=== PATIENT | female | born 1950 | race Caucasian/White ===

== ENCOUNTER 2016-06-14 02:36 | Emergency (ER) | payer MEDICARE, OTHER ==
[~2016-06-14] VITALS: Ht 157.5 cm; Wt 81.0 kg
[~2016-06-14 02:36] MED LIST: AMLO1CAP5; ASPI-465; METO-53
[2016-06-14 02:40] VITALS: Ht 157.5 cm; Wt 81.0 kg
[2016-06-14] MEDS ORDERED: ONDANSETRON 4 MG INJ IV STA (03:00)
[2016-06-14] MEDS ORDERED: SOD CHLORIDE 0.9% 1,000 ML IV STA ×2 (03:00)
[2016-06-14] MEDS ORDERED: morphine 4 MG/ML VIAL IV STA (03:00)
--- NOTE | 2016-06-14 03:08 | ERD ---
ER Documentation Chief Complaint Date/Time DATE: 06/14/16 TIME: 03:04 Chief Complaint hypertension, hx-htn taking bp meds HPI Patient is a 65-year-old female who comes with multiple complaint. Her first complaint is that her blood pressure is elevated tonight. She states it was much higher at home but she took one of her beta-blockers before coming in tonight. Her second complaint is that she is dizzy. She cannot describe the dizziness other than to say it is not a spinning sensation. She cannot say what makes the dizziness better or worse. Her third complaint is that she had some palpitations tonight. The beta-geno she took help with the palpitations. Her fourth complaint is that she has had some abdominal pain which is been going on for several months. It is in the left upper quadrant and left flank region. It seems to come and go on its own. Nothing seems to make it better or worse. She has not had any weight loss or weight gain. She has not had any fever, nausea, vomiting, diarrhea, dysuria, or hematuria. She also has not had any focal weakness, or paresthesias, visual changes, headache, or head injury. She denies any fever, chest pain, shortness of breath, coughing , congestion, rhinorrhea, sore throat, or otalgia. In the remainder of the systems are negative. ROS All systems reviewed and are negative except as per history of present illness. Medications Home Meds Reported Medications Amlodipine-Benazepril (Lotrel) 1 Cap Capsule 03/10/09 Aspirin (Adult Low Dose Aspirin) 81 Mg Tablet. 03/10/09 Metoprolol (Lopressor) 50 Mg Tablet 03/10/09 Allergies Allergies: Coded Allergies: No Known Allergy (Unverified , 04/11/13) PMhx/Soc History of Surgery: No Hx Neurological Disorder: No Hx Respiratory Disorders: No Hx Cardiac Disorders: Yes (HTN, ) Hx Miscellaneous Medical Probl: Yes (ARTHRITIS) Hx Alcohol Use: No Hx Substance Use: No Hx Tobacco Use: No Smoking Status: Never smoker Physical Exam Vitals Vital Signs Date Time Temp Pulse Resp B/P Pulse Ox O2 Delivery O2 Flow Rate FiO2 06/14/16 04:16 82 16 165/94 98 Room Air 06/14/16 03:30 78 160/85 81 169/91 85 184/99 06/14/16 02:55 77 18 178/97 98 Room Air 06/14/16 02:40 97.8 80 20 199/93 98 Physical Exam Const: [] Well-developed well-nourished female lying on the bed in no acute distress Head: Atraumatic normocephalic Eyes: Normal Conjunctiva, pupils equally round and reactive to light, extraocular motions are intact ENT: Normal External Ears, Nose and Mouth., TMs are clear bilaterally Neck: Full range of motion..~ No meningismus. Resp: Clear to auscultation bilaterally, no tachypnea, retractions, or nasal flaring noted Cardio: Regular rate and rhythm, no murmurs Abd: Soft, non tender, non distended. Normal bowel sounds, no masses, rebound , or guarding Skin: No petechiae or rashes Back: No midline or flank tenderness Ext: No cyanosis, or edema Neur: Awake and alert, oriented 3, GCS of 15, cranial nerves II through XII are intact, no nystagmus, finger to nose is intact bilaterally, nonfocal Psych: Normal Mood and Affect Result Diagram: 06/14/16 0320 06/14/16 0320 Results 24 hrs Laboratory Tests Test 06/14/16 03:20 06/14/16 04:00 White Blood Count 7.510^3/ul Red Blood Count 4.4410^6/ul Hemoglobin 13.1g/dl Hematocrit 38.9% Mean Corpuscular Volume 87.6fl Mean Corpuscular Hemoglobin 29.5pg Mean Corpuscular Hemoglobin Concent 33.7g/dl Red Cell Distribution Width 12.9% Platelet Count 95028^3/UL Mean Platelet Volume 10.0fl Neutrophils % 57.8% Lymphocytes % 33.3% Monocytes % 7.3% Eosinophils % 0.9% Basophils % 0.4% Nucleated Red Blood Cells % 0.0/100WBC Neutrophils # 4.310^3/ul Lymphocytes # 2.510^3/ul Monocytes # 0.610^3/ul Eosinophils # 0.110^3/ul Basophils # 0.010^3/ul Nucleated Red Blood Cells # 0.010^3/ul Prothrombin Time 12.1Sec Prothrombin Time Ratio 0.9 INR International Normalized Ratio 0.90 Activated Partial Thromboplast Time 28.9Sec Sodium Level 142mmol/L Potassium Level 4.4mmol/L Chloride Level 106mmol/L Carbon Dioxide Level 27mmol/L Anion Gap 13 Blood Urea Nitrogen 16mg/dl Creatinine 0.60mg/dl Glucose Level 152mg/dl Calcium Level 9.0mg/dl Total Bilirubin 0.2mg/dl Direct Bilirubin 0.00mg/dl Indirect Bilirubin 0.2mg/dl Aspartate Amino Transf (AST/SGOT) 22IU/L Alanine Aminotransferase (ALT/SGPT) 46IU/L Alkaline Phosphatase 71IU/L Troponin I < 0.012ng/ml Total Protein 7.1g/dl Albumin 4.1g/dl Globulin 3.00g/dl Albumin/Globulin Ratio 1.36 Urine Color LT. YELLOW Urine Clarity CLEAR Urine pH 6.0 Urine Specific [place] <=1.005 Urine Ketones NEGATIVE Urine Nitrite NEGATIVE Urine Bilirubin NEGATIVE Urine Urobilinogen 0.2 E.U./dL Urine Leukocyte Esterase TRACE Urine Microscopic RBC 0-2/HPF Urine Microscopic WBC 2-5/HPF Urine Squamous Epithelial Cells FEW Urine Bacteria FEW Urine Hemoglobin NEGATIVE Urine Glucose NEGATIVE% Urine Total Protein NEGATIVE Current Medications Medications (Trade) Dose Ordered Sig/Calvin Route PRN Reason Start Time Stop Time Status Last Admin Dose Admin Sodium Chloride 1,000 ml @ 1,000 mls/hr Q1H STAT IV 06/14/16 03:00 06/14/16 03:59 DC 06/14/16 03:26 Sodium Chloride (NS) 1,000 ml @ 1,000 mls/hr Q1H STAT IV 06/14/16 03:00 06/14/16 03:04 DC Morphine Sulfate (morphine) 4 mg ONCE STAT IV 06/14/16 03:00 06/14/16 03:03 DC Ondansetron HCl (Zofran Inj) 4 mg ONCE STAT IV 06/14/16 03:00 06/14/16 03:04 DC Hydralazine HCl (Apresoline) 10 mg ONCE ONCE IV 06/14/16 03:30 06/14/16 03:31 DC 06/14/16 03:26 Hydralazine HCl (Apresoline) 10 mg ONCE ONCE IV 06/14/16 04:30 06/14/16 04:33 DC 06/14/16 04:41 Procedures/MDM Differential includes but is not limited to dizziness, hypertension, palpitations, nonspecific abdominal pain, vertigo, TIA, CVA, angina, diverticulitis, colitis, pyelonephritis, urinary tract infection EKG: Rate/Rhythm: Normal Sinus Rhythm at 75 bpm without any evidence of acute ischemia, arrhythmia, or ectopy noted, no old EKG available for comparison QRS, ST, T-waves: No changes consistent w/ acute ischemia Impression: No evidence of ischemia or arrhythmia Chest x-ray did not reveal any acute cardiopulmonary process CT the head does not reveal any acute intracranial abnormality Urinalysis is slightly positive for a urinary tract infection CT of the abdomen and pelvis does not reveal any acute intra-abdominal findings per the radiologist 0530: Patient's white cells are normal. Her conference metabolic panel is unremarkable. Her EKG is unremarkable. CT the head does not reveal any acute abnormalities. She does not tilt on orthostatics. Her troponin is negative. It appears she is stable for discharge home and further treatment as an outpatient. Departure Diagnosis: Primary Impression: Hypertension Hypertension type: essential hypertension Qualified Code: I10 - Essential hypertension Additional Impressions: Urinary tract infection Urinary tract infection type: acute cystitis Hematuria presence: without hematuria Qualified Code: N30.00 - Acute cystitis without hematuria Dizziness of unknown cause Palpitations Abdominal pain Abdominal location: left upper quadrant Qualified Code: R10.12 - Left upper quadrant pain Left flank pain Condition: Good Patient Instructions: Abdominal Pain, Dizziness, Unk Cause, Flank Pain, Uncertain Cause, Hypertension, Established, Out Of Control, Palpitations, Understanding Urinary Tract Infections (UTIs) Additional Instructions: Please take your medications as prescribed and schedule a follow-up appointment with your primary care physician for further evaluation and treatment of your complaints. He will also need a recheck of your blood pressure to see if her medications need to be adjusted for better control of her blood pressure. Return to the emergency department for any new or worsening symptoms. BRIDGER CANO Jun 14, 2016 03:08
[2016-06-14] MEDS ORDERED: hydrALAzine 20 MG INJ IV ONE ×2 (03:30→04:30)
[2016-06-14 03:46] LABS: ADD SCAN DIFF NO
[2016-06-14 03:48] LABS: BASOPHILS % 0.4 % (0.0-2.0); EOSINOPHILS # 0.1 10^3/ul (0.0-0.5); EOSINOPHILS % 0.9 % (0.0-7.0); HEMATOCRIT 38.9 % (37.0-47.0); HEMOGLOBIN 13.1 g/dl (12.0-16.0); LYMPHOCYTES # 2.5 10^3/ul (0.8-2.9); LYMPHOCYTES % 33.3 % (15.0-51.0); MEAN CORPUSCULAR HEMOGLOBIN 29.5 pg (29.0-33.0); MEAN CORPUSCULAR HGB CONC 33.7 g/dl (32.0-37.0); MEAN CORPUSCULAR VOLUME 87.6 fl (82.0-101.0); MONOCYTE # 0.6 10^3/ul (0.3-0.9); MONOCYTES % 7.3 % (0.0-11.0); NEUTROPHIL # 4.3 10^3/ul (1.6-7.5); NEUTROPHILS % 57.8 % (39.0-77.0); PLATELET COUNT 185 10^3/UL (140-415); RED BLOOD COUNT 4.44 10^6/ul (4.20-5.40); RED CELL DISTRIBUTION WIDTH 12.9 % (11.5-14.5); WHITE BLOOD COUNT 7.5 10^3/ul (4.8-10.8)
[2016-06-14 04:05] LABS: INR 0.9; PROTIME 12.1 Sec (12.2-14.2); PT RATIO 0.9
[2016-06-14 04:06] LABS: PARTIAL THROMBOPLASTIN TIME 28.9 Sec (25.0-35.0)
[2016-06-14 04:07] LABS: ALBUMIN 4.1 g/dl (3.3-4.9); CHLORIDE 106 mmol/L (97-110); SODIUM 142 mmol/L (135-144)
[2016-06-14 04:08] LABS: POTASSIUM 4.4 mmol/L (3.5-5.1)
[2016-06-14 04:10] LABS: ALANINE AMINOTRANSFERASE 46 IU/L (13-69); ALBUMIN/GLOBULIN RATIO 1.36; ALKALINE PHOSPHATASE 71 IU/L (42-121); ANION GAP 13 (8-16); ASPARTATE AMINO TRANSFERASE 22 IU/L (15-46); BILIRUBIN,INDIRECT 0.2 mg/dl (0-1.1); BILIRUBIN,TOTAL 0.2 mg/dl (0.2-1.3); BLOOD UREA NITROGEN 16 mg/dl (7-20); CARBON DIOXIDE 27 mmol/L (21-31); GLUCOSE 152 mg/dl (70-220); TOTAL PROTEIN 7.1 g/dl (6.1-8.1)
--- NOTE | 2016-06-14 04:17 | RADRPT ---
PROCEDURE: CT BRAIN WITHOUT CONTRAST CLINICAL INDICATION: 65-year-old female with dizziness. TECHNIQUE: The study was performed utilizing [employer] VCT 64-slice CT scanner. Direct axial sections were obtained from the foramen magnum to the vertex without the use of intravenous contrast material. Sagittal and coronal reformations were obtained. One or more of the following dose reduc tion techniques were utilized: automated exposure control, adjustment of the mA and/or kV according to patient's size or use of iterative reconstruction technique. The images were viewed on a PACS w orkstation. CTD/vol = 44.5 mGy; Total Exam DLP = 720.2 mGy-cm. COMPARISON: None. FINDINGS: There is mild prominence of the sulci and cisternal spaces consistent with diffuse volume loss. Oth erwise, the ventricles have a normal shape and position. There is no evidence for mass effect or mid line shift. There is mild left frontal deep white matter decreased density which was present previo usly and is without significant interval change. There is no evidence for acute intra or extra-axia l blood. The bony calvarium is intact. Mild hyperostosis frontalis interna is noted. The partially visualized paranasal sinuses and mastoid air cells are without significant abnormal soft tissue. IMPRESSION: 1. Mild diffuse volume loss. 2. Left frontal deep white matter decreased density presumably microangiopathic ischemic changes an d without significant interval change. .Ever Johnson MD, MD Date Time Electronically viewed and signed by .Ever Johnson MD, MD on 06/14/2016 04:17 .M/
--- NOTE | 2016-06-14 04:20 | RADRPT ---
PROCEDURE: CHEST - 1 VIEW CLINICAL INDICATION: 65-year-old female with chest pain. TECHNIQUE: A single frontal AP upright portable view of the chest was performed. The images were reviewed on a PACS workstation. COMPARISON: Chest x-ray April 11, 2013; CT abdomen/pelvis June 14, 2016. FINDINGS: There is a shallow inspiration accentuating the heart size. Accounting for this, the cardiomediasti nal silhouette is within normal limits. There is bilateral lower lung zone subsegmental atelectasis . A superimposed infiltrate cannot be excluded. There is no evidence for congestive heart failure . There is no evidence for pneumothorax. There is an old fracture deformity visualized involving the posterior seventh rib. IMPRESSION: 1. Shallow inspiration. 2. Bilateral lower lung zone subsegmental atelectasis. 3. Old right posterior seventh rib fracture deformity. .Ever Johnson MD, Date Time Electronically viewed and signed by .Ever Johnson MD, on 06/14/2016 04:19 .M/
[2016-06-14 04:23] LABS: TROPONIN-I < 0.012 ng/ml (0.00-0.12)
--- NOTE | 2016-06-14 04:24 | RADRPT ---
PROCEDURE: CT ABDOMEN/PELVIS WITHOUT CONTRAST CLINICAL INDICATION: 65-year-old female with abdominal pain. TECHNIQUE: The study was performed utilizing a GE [employer]ed VCT 64-slice CT scanner. Direct axia l sections were obtained through the abdomen and pelvis without the use of intravenous contrast mate rial. Sagittal and coronal reformations were obtained. One or more of the following dose reduction t echniques were utilized: automated exposure control, adjustment of the mA and/or kV according to pat ient's size or use of iterative reconstruction technique. The images were reviewed on a PACS workst atINCHRON. CTD/vol = 21.6 mGy; Total Exam DLP = 1264.6 mGy-cm. COMPARISON: None. FINDINGS: There is mild bibasilar subsegmental atelectasis. There is no evidence for significant pleural effu frank. The liver has a normal size and contour without focal areas of abnormal density. No intrahepa tic nor extrahepatic biliary ductal dilatation is seen. The gallbladder demonstrates no wall thicken ing nor pericholecystic fluid. No biliary stones are evident. The pancreas is without areas of abnor mal attenuation. The spleen is identified and has a normal size without abnormal density. The adren al glands are unremarkable. The kidneys are without abnormal density. No hydroureteronephrosis nor n ephroureterolithiasis is evident. The urinary bladder contains urine. There is mild retained stool w ithin the ascending and transverse colon without obstruction. The appendix is visualized and is wit hout abnormal thickening or surrounding inflammatory reaction. The uterus is unremarkable. There is no significant free fluid. The aortoiliac vessels are without aneurysmal dilatation. Degenerative changes are seen within the spine. IMPRESSION: 1. Mild bibasilar subsegmental atelectasis. 2. No CT evidence for obstructive uropathy or renal calculi. 3. Retained stool without obstruction. 4. No CT evidence for appendicitis. 5. Degenerative changes within the spine. .Ever Johnson MD, Date Time Electronically viewed and signed by .Ever Johnson MD, on 06/14/2016 04:23 .M/
[2016-06-14 04:40] LABS: ADD UMIC YES; URINE BILIRUBIN (Dip) NEGATIVE (NEGATIVE); URINE BLOOD (Dip) NEGATIVE (NEGATIVE); URINE COLOR LT. YELLOW (YELLOW); URINE GLUCOSE (Dip) NEGATIVE (NEGATIVE); URINE KETONES (Dip) NEGATIVE (NEGATIVE); URINE LEUKOCYTE ESTERASE (Dip) TRACE (NEGATIVE); URINE NITRITE (Dip) NEGATIVE (NEGATIVE); URINE TOTAL PROTEIN (Dip) NEGATIVE (NEGATIVE); URINE UROBILINOGEN (Dip) 0.2 E.U./dL (0.1-1.0)
[2016-06-14 04:48] LABS: BACTERIA,URINE FEW; SQUAMOUS EPITHELIAL CELL,UR FEW; URINE RBCS 0-2 /HPF (0)
[2016-06-14] MEDS ORDERED: CEFTRIAXONE 1 GM/50 ML (PMX) 50 ML IVPB ONE (05:30)
[2016-06-14] MEDS ORDERED: CIPR500T4 PO (05:33)
[2016-06-14] MEDS ORDERED: HYDR-3671 PO (05:34)
[2016-06-14] MEDS ORDERED: MECL12.574 PO (05:34)
[2016-06-14] MEDS ORDERED: ONDA4TAB8 PO (05:35)
[2016-06-14] MEDS ORDERED: ONDANSETRON (ODT) 4 MG TAB ODT ONE ×2 (06:12→06:24)
[2016-06-14 06:16] VITALS: BP 151/88; PULSE 95; RESP 21; TEMP 98.7
== END 2016-06-14 06:24 | disposition home or self-care (01) ==
LOC: E/R 02:36
DX: I10 Essential (primary) hypertension (principal); N30.00 Acute cystitis without hematuria; R00.2 Palpitations; R10.12 Left upper quadrant pain; Z79.82 Long term (current) use of aspirin
CPT/HCPCS: 36415; 70450; 71010; 74176; 80053; 81001; 81003; 84484; 85025; 85610; 85730; 87086; 93005; 96374; 96375; 96376; 99285; J0360; J0696; J7030; J2405

== ENCOUNTER 2016-11-14 00:03 | Emergency (ER) | payer MEDICARE, OTHER ==
[~2016-11-14] VITALS: Ht 157.5 cm; Wt 79.5 kg
[~2016-11-14 00:03] MED LIST changes: +CIPR500T4 PO; +HYDR-3671 PO; +MECL12.574 PO; +ONDA4TAB8 PO
[2016-11-14 00:24] VITALS: Ht 157.5 cm; Wt 79.5 kg
[2016-11-14] MEDS ORDERED: hydrALAzine 20 MG INJ IV ONE (04:30)
--- NOTE | 2016-11-14 05:10 | RADRPT ---
PROCEDURE: CHEST - 1 VIEW CLINICAL INDICATION: 66-year-old female with chest pain and headaches. TECHNIQUE: A single frontal AP upright portable view of the chest was performed. The images were reviewed on a PACS workstation. COMPARISON: Chest x-ray June 14, 2016. FINDINGS: The cardiomediastinal silhouette has a normal appearance. There is mild elevation right hemidiaphrag m. There is a shallow inspiration. There is mild bibasilar subsegmental atelectasis There is no e vidence for an infiltrate. There is no evidence for congestive heart failure. There is no evidence for pneumothorax. There is an old posterior right seventh rib fracture deformity. IMPRESSION: 1. Shallow inspiration with elevated right hemidiaphragm. 2. Mild bibasilar subsegmental atelectasis. 3. Old posterior right seventh rib fracture deformity. .Ever Johnson MD, Date Time Electronically viewed and signed by .Ever Johnson MD, MD on 11/14/2016 05:10 .M/
[2016-11-14] MEDS ORDERED: TEMA15CA6 PO (05:47)
[2016-11-14] MEDS ORDERED: VENL75CA89 PO (05:47)
[2016-11-14] MEDS ORDERED: MELO-109 PO (05:47)
[2016-11-14] MEDS ORDERED: CLON0.5T4 PO (05:47)
[2016-11-14] MEDS ORDERED: ROSU40TA35 PO (05:47)
[2016-11-14] MEDS ORDERED: PANT40TA4 PO (05:47)
[2016-11-14 06:06] VITALS: BP 157/87; PULSE 81; RESP 20; TEMP 97.5
--- NOTE | 2016-11-14 06:12 | RADRPT ---
PROCEDURE: CT BRAIN WITHOUT CONTRAST CLINICAL INDICATION: 66-year-old female with headaches. TECHNIQUE: The study was performed utilizing [employer]o VCT 64-slice CT scanner. Direct axial sections were obtained from the foramen magnum to the vertex without the use of intravenous contrast material. Sagittal and coronal reformations were obtained. One or more the following dose reduction techniques were utilized: automated exposure control, adjustment of the mA and/or kV according to p atient's size or use of iterative reconstruction technique. The images were viewed on a PACS worksta tion. CTD/vol = 45.0 mGy; Total Exam DLP = 720.2 mGy-cm. COMPARISON: CT brain June 14, 2016. FINDINGS: There is mild prominence of the sulci and cisternal spaces consistent with diffuse volume loss. Oth erwise, the ventricles are normal size, shape and position. There is no evidence for mass effect or midline shift. There is again noted a small focal area of decreased density within the left fronta l periventricular deep white matter without significant interval change. There is no evidence for a cute intra or extra-axial blood. The bony calvarium is intact. Mild hyperostosis frontalis interna i s noted. The partially visualized paranasal sinuses and mastoid air cells are without significant ab normal soft tissue. IMPRESSION: 1. There has been no marked interval change compared to the patient's prior CT scan from June 14, 2016. 2. Mild diffuse volume loss. 3. Persistent small focal left frontal focus of decreased density without interval change. Etiologi es include microangiopathic ischemic changes, vasculitis, migraine, sequela of prior trauma. 4. Mild hyperostosis frontalis interna. .Ever Johnson MD, Date Time Electronically viewed and signed by .Ever Johnson MD, on 11/14/2016 06:12 .M/
[2016-11-14 06:13] LABS: BASOPHILS % 0.3 % (0.0-2.0); EOSINOPHILS # 0.1 10^3/ul (0.0-0.5); HEMATOCRIT 43.5 % (37.0-47.0); HEMOGLOBIN 14.9 g/dl (12.0-16.0); LYMPHOCYTES # 2.8 10^3/ul (0.8-2.9); LYMPHOCYTES % 38.3 % (15.0-51.0); MEAN CORPUSCULAR HEMOGLOBIN 29.2 pg (29.0-33.0); MEAN CORPUSCULAR HGB CONC 34.3 g/dl (32.0-37.0); MEAN CORPUSCULAR VOLUME 85.3 fl (82.0-101.0); MEAN PLATELET VOLUME 10.2 fl (7.4-10.4); MONOCYTE # 0.5 10^3/ul (0.3-0.9); MONOCYTES % 7.1 % (0.0-11.0); NEUTROPHILS % 53.2 % (39.0-77.0); PLATELET COUNT 193 10^3/UL (140-415); RED CELL DISTRIBUTION WIDTH 12.6 % (11.5-14.5); WHITE BLOOD COUNT 7.3 10^3/ul (4.8-10.8)
[2016-11-14 06:34] LABS: INR 0.87; PARTIAL THROMBOPLASTIN TIME 27.9 Sec (25.0-35.0); PROTIME 11.8 Sec (12.2-14.2); PT RATIO 0.9
[2016-11-14] MEDS ORDERED: ACETAMINOPHEN 500 MG TAB PO STA (06:36)
--- NOTE | 2016-11-14 06:46 | ERA ---
ER Documentation Chief Complaint Date/Time DATE: 11/14/16 TIME: 06:43 Chief Complaint headache and dizziness x a couple of hours. feels that her B/P is high HPI This is a 66-year-old female who presents to the emergency room complaining of dizziness and headache. She describes several hours prior to arrival she noted her blood pressure was elevated. She thinks that she missed 1-2 doses of her blood pressure medications. She started to have a mild headache that was diffuse and gradual in onset, moderate. This was associated with dizziness. No chest pain or pressure. Symptoms are improving with blood pressure improvement. Patient denies any fevers chills, falls, numbness or tingling or difficulty speaking. ROS All systems reviewed and are negative except as per history of present illness. Medications Home Meds Active Scripts Meclizine Hcl* (Antivert*) 12.5 Mg Tab, 25 MG PO Q6H Y for DIZZINESS, #30 TAB 0 Refills Prov:BRIDGER CANO 06/14/16 Hydralazine Hcl* (Hydralazine Hcl*) 25 Mg Tab, 25 MG PO Q8, #90 TAB 0 Refills Prov:BRIDGER CANO 06/14/16 Reported Medications Rosuvastatin Calcium* (Crestor*) 40 Mg Tablet, 40 MG PO QHS, #30 TAB 11/14/16 Venlafaxine Hcl* (Venlafaxine Hcl ER*) 75 Mg Cap.er.24h, 75 MG PO DAILY, CAP 11/14/16 Meloxicam* (Meloxicam*) 7.5 Mg Tablet, 7.5 MG PO DAILY, #30 TAB 11/14/16 Clonazepam* (Clonazepam*) 0.5 Mg Tablet, 0.5 MG PO BID, TAB 11/14/16 Temazepam* (Restoril*) 15 Mg Capsule, 15 MG PO HS Y for INSOMNIA, CAP 11/14/16 Pantoprazole* (Pantoprazole*) 40 Mg Tablet.dr, 40 MG PO DAILY, TAB 11/14/16 Aspirin (Adult Low Dose Aspirin) 81 Mg Tablet. 03/10/09 Metoprolol (Lopressor) 50 Mg Tablet 03/10/09 Discontinued Reported Medications Amlodipine-Benazepril (Lotrel) 1 Cap Capsule 03/10/09 Discontinued Scripts Ondansetron Hcl* (Zofran*) 4 Mg Tablet, 4 MG PO Q8H Y for NAUSEA AND/OR VOMITING , #30 TAB 0 Refills Prov:BRIDGER CANO 06/14/16 Ciprofloxacin Hcl* (Ciprofloxacin Hcl*) 500 Mg Tablet, 500 MG PO BID for 5 Days , TAB 0 Refills Prov:BRIDGER CANO 06/14/16 Allergies Allergies: Coded Allergies: No Known Allergy (Unverified , 11/14/16) PMhx/Soc History of Surgery: No Hx Neurological Disorder: No Hx Respiratory Disorders: No Hx Cardiac Disorders: Yes (HTN, ) Hx Miscellaneous Medical Probl: Yes (ARTHRITIS) Hx Alcohol Use: No Hx Substance Use: No Hx Tobacco Use: No Smoking Status: Never smoker FmHx Family History: No diabetes Physical Exam Vitals Vital Signs Date Time Temp Pulse Resp B/P Pulse Ox O2 Delivery O2 Flow Rate FiO2 11/14/16 06:06 97.5 81 20 157/87 98 Room Air 11/14/16 00:24 97.5 84 20 197/100 98 Physical Exam General: Well developed, well nourished, no acute distress Head: Normocephalic, atraumatic. Eyes: Pupils equally reactive, EOM intact ENT: Moist mucous membranes Neck: Supple, no lymphadenopathy Respiratory: Lungs clear bilaterally, no distress Cardiovascular: RRR, no murmurs, rubs, or gallops Abdominal: Soft, non-tender, non-distended, no peritoneal signs : Deferred MSK: No edema, no unilateral swelling, 5/5 strength Neurologic: Alert and oriented, moving all extremities, normal speech, no focal weakness, no cerebellar signs Skin: No rash Psych: Normal mood Result Diagram: 11/14/1615 11/14/1615 Results 24 hrs Laboratory Tests Test 11/14/16 05:15 White Blood Count 7.310^3/ul Red Blood Count 5.1010^6/ul Hemoglobin 14.9g/dl Hematocrit 43.5% Mean Corpuscular Volume 85.3fl Mean Corpuscular Hemoglobin 29.2pg Mean Corpuscular Hemoglobin Concent 34.3g/dl Red Cell Distribution Width 12.6% Platelet Count 08579^3/UL Mean Platelet Volume 10.2fl Neutrophils % 53.2% Lymphocytes % 38.3% Monocytes % 7.1% Eosinophils % 1.0% Basophils % 0.3% Nucleated Red Blood Cells % 0.0/100WBC Neutrophils # (Manual) 3.910^3/ul Lymphocytes # 2.810^3/ul Monocytes # 0.510^3/ul Eosinophils # 0.110^3/ul Basophils # 0.010^3/ul Nucleated Red Blood Cells # 0.010^3/ul Prothrombin Time 11.8Sec Prothrombin Time Ratio 0.9 INR International Normalized Ratio 0.87 Activated Partial Thromboplast Time 27.9Sec Sodium Level 146mmol/L Potassium Level 3.9mmol/L Chloride Level 103mmol/L Carbon Dioxide Level 25mmol/L Anion Gap 22 Blood Urea Nitrogen 13mg/dl Creatinine 0.56mg/dl Glucose Level 128mg/dl Calcium Level 9.9mg/dl Troponin I < 0.012ng/ml Current Medications Medications (Trade) Dose Ordered Sig/Calvin Route PRN Reason Start Time Stop Time Status Last Admin Dose Admin Hydralazine HCl (Apresoline) 20 mg ONCE ONCE IV 11/14/16 04:30 11/14/16 04:31 DC 11/14/16 05:16 Acetaminophen (Tylenol Tab) 1,000 mg ONCE STAT PO 11/14/16 06:36 11/14/16 06:37 DC 11/14/16 06:45 Procedures/MDM EKG, MONITORS, & DIAGNOSTIC IMAGING: EKG: I reviewed and interpreted a 12-lead EKG. Rhythm: Normal sinus rhythm Ectopy: None Intervals: No abnormalities ST segments: No elevations or depressions T waves: No contiguous inversions Chest x-ray: I reviewed and interpreted a 1 view of the chest Mediastinum: No enlargement Cardiac silhouette: No cardiomegaly Airspace: Clear lung payne bilaterally without evidence of pneumothorax Bones: No evidence of fracture CT brain IMPRESSION: 1. There has been no marked interval change compared to the patient's prior CT scan from June 14, 2016. 2. Mild diffuse volume loss. 3. Persistent small focal left frontal focus of decreased density without interval change. Etiologies include microangiopathic ischemic changes, vasculitis, migraine, sequela of prior trauma. 4. Mild hyperostosis frontalis interna. LAB INTERPRETATION: Negative troponin, no leukocytosis MEDICAL DECISION MAKING The patient presents to the emergency room with elevated blood pressure headache and mild dizziness. Her symptoms are very consistent with hypertensive urgency. No evidence of stroke or intracranial hemorrhage. The patient has no chest pain or shortness of breath. At this point, no signs or symptoms concerning for endorgan dysfunction. Given the patient's age, however I would feel the patient would benefit from laboratory testing and diagnostic imaging to rule out endorgan dysfunction. The patient was seen by the overnight physician prior to my arrival and given hydralazine, laboratory testing and diagnostic imaging was ordered. The patient is asymptomatic upon my evaluation. ER COURSE: The patient was given hydralazine with improvement of her high blood pressure. Her symptoms are dramatically improved. Her laboratory testing and diagnostic imaging showed no evidence of endorgan dysfunction. The patient's elevated blood pressure is likely secondary to noncompliance with medication regimen. The patient should follow-up with primary care physician. The patient's family member appear to think that the patient does forget her medications from time to time. I recommended that another family member take part in administering her help the patient administer her medications. The patient's blood pressure has improved. Tylenol improved her headache. Patient is now asymptomatic and safe for discharge. I kept the patient and/or family informed of laboratory and diagnostic imaging results throughout the emergency room course. DISPOSITION PLAN: We discussed follow up with the patient's primary care doctor within 24 to 48 hours as needed. We also discussed return to the emergency room for worsening symptoms or worsening condition. Outpatient referral: [None required] Departure Diagnosis: Primary Impression: Hypertensive urgency Condition: Stable BEATRICE MCKEON MD Nov 14, 2016 06:46
[2016-11-14 06:55] LABS: ANION GAP 22 (8-16); BLOOD UREA NITROGEN 13 mg/dl (7-20); CALCIUM 9.9 mg/dl (8.4-10.2); CARBON DIOXIDE 25 mmol/L (21-31); CHLORIDE 103 mmol/L (97-110); CREATININE 0.56 mg/dl (0.44-1.00); GLUCOSE 128 mg/dl (70-220); POTASSIUM 3.9 mmol/L (3.5-5.1); SODIUM 146 mmol/L (135-144)
[2016-11-14 07:09] LABS: TROPONIN-I < 0.012 ng/ml (0.00-0.12)
[2016-11-14 07:49] LABS: URINE BLOOD (Dip) POC Negative (NEGATIVE)
== END 2016-11-14 07:50 | disposition home or self-care (01) ==
LOC: E/R 00:03
DX: I16.0 Hypertensive urgency (principal); I10 Essential (primary) hypertension; R07.9 Chest pain, unspecified; Z79.82 Long term (current) use of aspirin
CPT/HCPCS: 36415; 70450; 71010; 80048; 81003; 84484; 85025; 85610; 85730; 93005; 96374; 99285; J0360

== ENCOUNTER 2017-11-09 04:25 | Emergency (ER) | END 2017-11-09 05:30 | disposition home or self-care (01) ==

== ENCOUNTER 2018-01-24 11:51 | Emergency (ER) | END 2018-01-24 16:30 | disposition home or self-care (01) ==

== ENCOUNTER 2018-05-22 08:10 | Emergency (ER) | payer MEDICARE, OTHER ==
[~2018-05-22] VITALS: Ht 167.6 cm; Wt 80.5 kg
[~2018-05-22 08:10] MED LIST changes: +ACET325T33 PO; -AMLO1CAP5; -CIPR500T4 PO; +CLON0.5T14 PO; +MELO7.5T38 PO; -ONDA4TAB8 PO; +PANT40TA4 PO; +ROSU40TA35 PO; +TEMA15CA6 PO; +VENL75CA89 PO
[2018-05-22 08:19] VITALS: Ht 167.6 cm; Wt 80.5 kg
--- NOTE | 2018-05-22 09:03 | ERD ---
ER Documentation Chief Complaint Chief Complaint Per Patient her BP is elevated (she took her meication this am) HPI 67-year-old woman brought in by family member for elevated blood pressure despite using medications. BP was checked at home twice and was elevated this morning and so she brought her here for evaluation. Patient is asymptomatic and denies headache or chest pain, no shortness of breath, no calf or leg swelling, no dizziness. ROS All systems reviewed and are negative except as per history of present illness. Medications Home Meds Active Scripts Acetaminophen* (Tylenol*) 325 Mg Tablet, 1 TAB PO Q6 PRN for PAIN, #20 TAB Prov:MIRIAN PETERSEN MD 01/24/18 Meclizine Hcl* (Antivert*) 12.5 Mg Tab, 25 MG PO Q6H PRN for DIZZINESS, #30 TAB 0 Refills Prov:BRIDGER CANO 06/14/16 Hydralazine Hcl* (Hydralazine Hcl*) 25 Mg Tab, 25 MG PO Q8, #90 TAB 0 Refills Prov:BRIDGER CANO 06/14/16 Reported Medications Rosuvastatin Calcium* (Crestor*) 40 Mg Tablet, 40 MG PO QHS, #30 TAB 11/14/16 Venlafaxine Hcl* (Venlafaxine Hcl ER*) 75 Mg Cap.er.24h, 75 MG PO DAILY, CAP 11/14/16 Meloxicam* (Meloxicam*) 7.5 Mg Tablet, 7.5 MG PO DAILY, #30 TAB 11/14/16 Clonazepam* (Clonazepam*) 0.5 Mg Tablet, 0.5 MG PO BID, TAB 11/14/16 Temazepam* (Restoril*) 15 Mg Capsule, 15 MG PO HS PRN for INSOMNIA, CAP 11/14/16 Pantoprazole* (Pantoprazole*) 40 Mg Tablet.dr, 40 MG PO DAILY, TAB 11/14/16 Aspirin (Adult Low Dose Aspirin) 81 Mg Tablet. 03/10/09 Metoprolol (Lopressor) 50 Mg Tablet 03/10/09 Allergies Allergies: Coded Allergies: No Known Allergy (Unverified , 11/14/16) PMhx/Soc hypertension, hyperlipidemia, GERD, and anxiety, History of Surgery: No Hx Neurological Disorder: No Hx Respiratory Disorders: No Hx Cardiac Disorders: Yes (Hypertension, hyperlipidemia) Hx Psychiatric Problems: Yes (Anxiety, depression) Hx Miscellaneous Medical Probl: Yes (ARTHRITIS, GERD, vertigo) Hx Alcohol Use: No Hx Substance Use: No Hx Tobacco Use: No Smoking Status: Never smoker Physical Exam Vitals Vital Signs Date Temp Pulse Resp B/P (MAP) Pulse Ox O2 O2 Flow FiO2 Time Delivery Rate 05/22/18 70 18 148/80 95 Room Air 10:12 (102) 05/22/18 82 18 156/80 98 Room Air 08:58 (105) 05/22/18 97.6 78 20 188/90 97 08:19 (122) Physical Exam Const: Appears anxious, afebrile Head: Atraumatic Eyes: Normal Conjunctiva ENT: Normal External Ears, Nose and Mouth. Neck: Full range of motion. No meningismus. Resp: Clear to auscultation bilaterally Cardio: Regular rate and rhythm, no murmurs Abd: Soft, non tender, non distended. Normal bowel sounds Skin: No petechiae or rashes Back: No midline or flank tenderness Ext: No cyanosis, or edema Neur: Awake and alert x3, no focal deficits or facial asymmetry, pupils equal round reactive to light, funduscopic exam deferred Psych: Anxious Result Diagram: 05/22/1819 05/22/18918 Results 24 hrs Laboratory Tests Test 05/22/18 09:19 White Blood Count 6.8 10^3/ul Red Blood Count 4.71 10^6/ul Hemoglobin 13.9 g/dl Hematocrit 40.9 % Mean Corpuscular Volume 86.8 fl Mean Corpuscular Hemoglobin 29.5 pg Mean Corpuscular Hemoglobin Concent 34.0 g/dl Red Cell Distribution Width 12.4 % Platelet Count 200 10^3/UL Mean Platelet Volume 10.6 fl Immature Granulocytes % 0.100 % Neutrophils % 64.4 % Lymphocytes % 26.7 % Monocytes % 7.7 % Eosinophils % 1.0 % Basophils % 0.1 % Nucleated Red Blood Cells % 0.0 /100WBC Immature Granulocytes # 0.010 10^3/ul Neutrophils # 4.3 10^3/ul Lymphocytes # 1.8 10^3/ul Monocytes # 0.5 10^3/ul Eosinophils # 0.1 10^3/ul Basophils # 0.0 10^3/ul Nucleated Red Blood Cells # 0.0 10^3/ul Urine Color STRAW Urine Clarity CLEAR Urine pH 7.0 Urine Specific [place] 1.004 Urine Ketones NEGATIVE mg/dL Urine Nitrite NEGATIVE mg/dL Urine Bilirubin NEGATIVE mg/dL Urine Urobilinogen NEGATIVE mg/dL Urine Leukocyte Esterase NEGATIVE Jb/ul Urine Hemoglobin NEGATIVE mg/dL Urine Glucose NEGATIVE mg/dL Urine Total Protein NEGATIVE mg/dl Sodium Level 140 mmol/L Potassium Level 4.3 mmol/L Chloride Level 104 mmol/L Carbon Dioxide Level 27 mmol/L Anion Gap 9 Blood Urea Nitrogen 11 mg/dl Creatinine 0.41 mg/dl Est Glomerular Filtrat Rate mL/min > 60 mL/min Glucose Level 132 mg/dl Calcium Level 9.9 mg/dl Total Bilirubin 0.3 mg/dl Direct Bilirubin 0.00 mg/dl Indirect Bilirubin 0.3 mg/dl Aspartate Amino Transf (AST/SGOT) 25 IU/L Alanine Aminotransferase (ALT/SGPT) 33 IU/L Alkaline Phosphatase 71 IU/L Troponin I < 0.012 ng/ml Total Protein 7.8 g/dl Albumin 4.5 g/dl Globulin 3.30 g/dl Albumin/Globulin Ratio 1.36 Lipase 128 U/L Current Medications Medications Dose Sig/Calvin Start Time Status Last (Trade) Ordered Route PRN Stop Time Admin Dose Reason Admin Sodium 500 ml @ Q1H STAT 05/22/18 DC 05/22/18 Chloride 500 mls/hr IV 09:07 05/22/18 09:28 10:06 Ondansetron 4 mg ONCE STAT 05/22/18 DC HCl (Zofran IV 09:07 05/22/18 Inj) 09:08 Procedures/[facility] IV line was established patient was placed on therapeutic support staff rhythm strip revealed a sinus rhythm at about 70 bpm with upright P and T waves. Patient was afebrile EKG performed, read by me revealed a normal sinus rhythm at 74 bpm, normal axis, narrow QRS complex, no concerning ST elevations or depressions noted. I administered 500 cc normal saline IV and Zofran 4 mg IV. CBC and electrolytes were normal, liver function tests were normal, troponin was negative, urinalysis was negative for infection Patient's hypertension resolved, and she remains asymptomatic on reevaluation Differential diagnoses considered, included but not limited to acute coronary syndrome, pulmonary embolism, aortic dissection, abdominal aortic aneurysm, sepsis, stroke, meningitis, encephalitis, pneumonia, appendicitis, cholecystitis, bowel obstruction, pyelonephritis, nephrolithiasis, cystitis, as well as metabolic, hematologic, and electrolyte abnormalities. As well as abscess, cellulitis, fractures, and dislocations. Patient feels much better at this time, and vital signs are normal, symptoms have improved. I did give strict instructions to return to the ED if symptoms continue or worsen, patient will otherwise follow-up with primary care physician. Patient understood instructions and agreed to plan. Disclaimer: Inadvertent spelling and grammatical errors are likely due to EHR/dictation software use and do not reflect on the overall quality of patient care. Also, please note that the electronic time recorded on this note does not necessarily reflect the actual time of the patient encounter. Departure Diagnosis: Primary Impression: Hypertension Hypertension type: essential hypertension Qualified Codes: I10 - Essential (primary) hypertension Condition: ISIDRO Flores MD May 22, 2018 09:03
[2018-05-22] MEDS ORDERED: ONDANSETRON 4 MG INJ IV STA (09:07)
[2018-05-22] MEDS ORDERED: SOD CHLORIDE 0.9% 500 ML IV STA (09:07)
[2018-05-22 10:12] VITALS: BP 148/80; PULSE 70; RESP 18
== END 2018-05-22 10:20 | disposition home or self-care (01) ==
LOC: E/R 08:10
DX: I10 Essential (primary) hypertension (principal); Z79.82 Long term (current) use of aspirin
CPT/HCPCS: 36415; 80053; 81003; 83690; 84484; 85025; 93005; 99284; J2405; J7040